=== PATIENT | female | born 1995 | race Caucasian/White ===

== ENCOUNTER 2017-04-05 11:04 | Emergency (ER) | payer MEDICAID ==
[~2017-04-05] VITALS: Ht 160 cm; Wt 105.0 kg
[2017-04-05] MEDS ORDERED: SODIUM CHLORIDE 0.9% 1,000 ML IV ONE (12:04)
[2017-04-05] MEDS ORDERED: ONDANSETRON HCL 4MG/2ML VIAL IV STA (12:04)
[2017-04-05] MEDS ORDERED: KETOROLAC 30MG/ML VIAL IV STA (12:04)
[2017-04-05 12:19] LABS: CLARITY URINE CLOUDY (CLEAR); COLOR URINE YELLOW (YELLOW); GLUCOSE URINE NEGATIVE (NEGATIVE); KETONES URINE TRACE (NEGATIVE); LEUKOCYTE ESTERASE URINE 1+ (NEGATIVE); NITRITE URINE NEGATIVE (NEGATIVE); OCCULT BLOOD URINE NEGATIVE (NEGATIVE); PROTEIN URINE TRACE (NEGATIVE); SPECIFIC GRAVITY URINE 1.023 (1.005-1.030)
[2017-04-05 12:43] LABS: HEMATOCRIT. 36.8 % (36.0-48.0); HEMOGLOBIN. 12.5 g/dL (12.0-16.0); MEAN CORPUSCULAR HEMOGLOBIN 29.8 pg (28.0-32.0); MEAN CORPUSCULAR VOLUME 87.6 fL (81.0-99.0); MEAN PLATELET VOLUME 7.7 fl (7.4-10.4); PLATELET 208 x1000/uL (130-400)
[2017-04-05 12:50] LABS: INR 1.1; PROTHROMBIN TIME 11.4 sec
[2017-04-05 12:54] LABS: HCG SCREEN NEGATIVE
[2017-04-05 12:58] LABS: CARBON DIOXIDE 26 mEq/L (21-32); CHLORIDE 102 mEq/L (98-107)
[2017-04-05] MEDS ORDERED: ACETAMINOPHEN 325MG TABLET PO ONE (13:15)
[2017-04-05 13:48] LABS: PLATELET ESTIMATE NORMAL
[2017-04-05 14:27] VITALS: BP 127/82
== END 2017-04-05 14:59 | disposition home or self-care (01) ==
LOC: ER 12:13
DX: N39.0 Urinary tract infection, site not specified (principal); E86.0 Dehydration; R50.9 Fever, unspecified; R51 Headache
CPT/HCPCS: 36415; 71010; 80053; 81001; 83605; 84145; 84703; 85025; 85610; 87040; 87086; 96361; 96374; 96375; 99285; J1885; J2405; J7030; Z7610